=== PATIENT | male | born 2000 | race Caucasian/White ===

== ENCOUNTER → 2020-03-21 09:41 | Outpatient (CLI) | payer SELFPAY ==
[2020-03-11 16:26] VITALS: BMI 19.7
--- NOTE | 2020-03-21 09:44 | CT_ITS ---
STUDY: CT FACIAL BONES WITH T WITHOUT CONTRAST REASON FOR EXAM: Male, 19 years old. Soft tissue mass right lateral eyebrow x years, recently increasing in size, denies pain. RADIATION DOSAGE (If Supplied By Facility): CTDIvol = ( 29.38 ) mGy, DLP = ( 1138.99 ) mGycm TECHNIQUE: The patient was scanned in a multi detector CT scanner. Transaxial imaging was performed prior to and following the administration of IV 100mL Isovue-300. Sagittal and coronal images were reconstructed. Individualized dose optimization techniques were used for this CT. COMPARISON: None. FINDINGS: Oval-shaped fat density mass of the right supraorbital scalp measures 1.4 x 2.3 cm. There is mild bony remodeling of the underlying calvarium (image 34 series 605). No abnormal contrast enhancement. Normal orbital mercedes and orbital contents. Normal nasal bones and anterior nasal spine. Normal facial bones. There is no demonstrated fracture. Normal visualized paranasal sinuses. CT/Sinus/Facial Bone W/WO Contras IMPRESSION: 1. 1.4 x 2.3 cm fat density mass of the right supraorbital soft tissues, compatible with lipoma. Electronically Signed: Michael Beckett MD (Brooks) at 21:26 EST , Service support ,
== END ==
PROVIDERS: PCP Family Medicine; Referring Provider Surgery; Visit Provider Surgery
DX: R22.0 Localized swelling, mass and lump, head (principal)
CPT/HCPCS: 70488; Q9967

== ENCOUNTER 2020-04-14 10:27 | Day surgery (SDC) | payer SELFPAY ==
[2020-03-11 16:26] VITALS: BMI 19.7
--- NOTE | 2020-04-13 17:17 | PCM.HP.BLA ---
History and Physical Date of Admission: 04/14/20 HISTORY OF PRESENT ILLNESS Patient is a 19 year old male who presents for evaluation of an enlarging soft tissue mass on his right lateral forehead, eyebrow, and upper eyelid. He has had this mass for several years and he states that it gets bigger and smaller. Denies fever. Denies trauma Denies any visual problems. CT Face was done on 03/21/20. It showed 1.4 x 2.3 cm fat density mass of the right supraorbital soft tissues, compatible with lipoma. He presents today for further evaluation and treatment. PAST MEDICAL HISTORY Head mass PAST SURGICAL HISTORY No history of previous surgery ALLERGIES No Known Allergies MEDICATIONS NK FAMILY HISTORY Other - No pertinent family history SOCIAL HISTORY Smoking Status: Never smoker alcohol intake: never substance use type: does not use REVIEW OF SYSTEMS General - Denies fever, fatigue, and weight loss. Eyes - Denies cataracts and glaucoma. ENT - Denies nasal congestion and sore throat. Has enlarging soft tissue mass right lateral forehead, eyebrow, and upper eyelid. Endocrine - Denies excessive thirst and urination. Skin - Denies skin cancer. Denies family history of skin cancer. Musculoskeletal - Denies joint pain, joint stiffness, weakness of muscles and joints, back pain, and arthritis. Neuro - Denies headaches. Cardiovascular - Denies chest pain, fatigue, and shortness of breath with exertion. Psych - Denies anxiety and depression. Respiratory - Denies chronic cough and shortness of breath. Gastrointestinal - Denies nausea, vomiting, diarrhea, and constipation. Hematologic - Denies abnormal bruising and bleeding. Genitourinary - Denies hematuria and urinary frequency. PHYSICAL EXAMINATION General - Alert and oriented. HEENT - PERRL. EOMI. Throat is clear. He is able to elevate his eyebrows symmetrically. On the right lateral forehead, eyebrow, and upper eyelid is a soft tissue mass that measures 3.5 cm. No ulceration. Mass is mobile. Mass is nontender. No other suspicious lesions noted. Neck - Supple and non-tender. No cervical adenopathy. No suspicious lesions noted. Lungs- Clear to auscultation. Heart - Regular rate and rhythm. Abdomen - Soft and non distended. Extremities - FROM. No axillary adenopathy. Radial pulses are palpable. No suspicious lesions noted. Neuro - CN II-XII grossly intact. Psych - Normal mood and affect. ASSESSMENT 3.5 cm soft tissue mass right lateral forehead, eyebrow, and upper eyelid. PLAN Recommend excision of this enlarging soft tissue mass right lateral forehead, eyebrow, and upper eyelid. Will send the mass to Pathology for analysis to rule out carcinoma. Prior to surgery, a CT was done on 03/21/20. It showed 1.4 x 2.3 cm fat density mass of the right supraorbital soft tissues, compatible with lipoma. Surgery will be done under general anesthesia on an outpatient basis. With the possibility of a submuscular location for this soft tissue mass, some of the temporal branches of the facial nerve may develop scarring from localized swelling that can lead to weakness in eyebrow elevation. If it develops, and ptosis issues occur in the future, then can proceed with revision reconstruction with a direct brow lift. Patient voices understanding. Patient was informed of the risks and complications of the procedure including alternatives to surgery. These were discussed with the patient personally. Patient voices understanding and wishes to proceed. Some of the risks and complications were included in a form from the [place] [employer]. We discussed the current risks associated with COVID-19. While it is understood that there is a community spread of COVID-19, the risk of blair COVID-19 while at [facility] ([facility]) is very low; however, the risk cannot be completely mitigated because of the community spread of the disease. We discussed in detail the risk of exposure to and/or potential harm posed by the COVID-19 virus with having a surgery/procedure at this time versus the risk of delaying the surgery/procedure. It is not possible to know either the risk of delaying the surgery or procedure or chance of getting an infection with perfect accuracy, but a joint decision was made to proceed at this time with the scheduled surgery/procedure as indicated on the consent form. Patient was notified that we will need to comply with any screening or testing [facility] wishes to perform or that surgery may be delayed for any positive results. Discussed with the patient that I was tested for COVID-19 on 09/26/19 which was negative and on 10/10/19 which was negative and on 10/24/19 which was negative and on 11/07/19 which was negative and on 11/21/19 which was negative and on 12/12/19 which was negative and on 01/02/20 which was negative and on 02/06/20 which was negative and on 02/27/20 which was negative and on 03/17/20 which was negative. My testing regimen at this time is to be COVID-19 tested every 2 weeks or so. I received the COVID-19 vaccine (Moderna) on 03/25/20. Procedure Criteria Procedure Type: Elective COVID Risk Discussion: The surgeon/proceduralist and patient have discussed in detail the risk of exposure to and/or potential harm posed by the COVID-19 virus with having a surgery/procedure at this time versus the risk of delaying the surgery/procedure. It is not possible to know either the risk of delaying the surgery or procedure or chance of getting an infection with perfect accuracy, but a joint decision was made between the patient and the surgeon/proceduralist to proceed at this time with the scheduled surgery/procedure as indicated on the consent form.
[2020-04-14 10:54] VITALS: BP 131/77; PULSE 87; RESP 18; TEMP 36.9; O2SAT 100; BMI 19.9
[2020-04-14] MEDS: Lactated Ringers 1,000 ML 100 ML IV (11:05)
--- NOTE | 2020-04-14 12:05 | MASS_PTH ---
PATIENT: JOE FREEMAN LOC: [facility] [place][id number] AGE/SX: 19/M ROOM: RE04/14/[address]: Dr. Crow Russ MD : 2000 BED: DIS: 04/14/2020 SPEC #: [id number] RECD: 04/14/20 14:08 STATUS: ANABEL REJI #: [id number] JOHN: 04/14/20 12:[address]: Crow Russ DEPT: SURGICAL PATHOLOGY RECD BY: Moriah Barroso ENTERED: 04/15/20 11:20 SP TYPE: Mass OTHR DR: Dr. Fox Falcon, DO Tissues: Skin of forehead Procedures: Surgery Specimen Level IV HEADER OPERATION: Excision soft tissue mass lateral forehead behind eyebrow PRE-OP DIAGNOSIS: 3.5 cm soft tissue mass right lateral forehead, eyebrow and upper eyelid TISSUE SUBMITTED: 3.5 cm soft tissue mass right lateral forehead, eyebrow and upper eyelid MICROSCOPIC DIAGNOSIS Soft tissue mass right lateral forehead, biopsy: Fragments of fibroadipose and fibroconnective tissue with focal fat necrosis, chronic inflammation and foreign body giant cells reaction. Negative for malignancy. RAFIQ:lisette 04/16/2020 MICROSCOPIC DESCRIPTION Slides are reviewed. GROSS DESCRIPTION Received in fixative is one container labeled with the patient's name and designated soft tissue mass right lateral forehead. The specimen consists of three irregular fragments of dark borja soft tissue that in aggregate measure 2 x 2 x 0.2 cm. The specimen is totally submitted in one cassette. / AM:lisette 04/15/20 TC:3 CPT: 22150
[2020-04-14] MEDS: Lidocaine 1%/Epi 1:200 (30ml) 30 ML AMPUL (12:54)
[2020-04-14] MEDS: Mupirocin Ointment 22gm Tube 1 APPLIC (12:54)
--- NOTE | 2020-04-14 13:49 | PCM.OPRPT ---
Report of Operation Date of Procedure: 04/14/20 Pre-Operative Diagnosis: 3.5 cm soft tissue mass right lateral forehead, eyebrow, and upper eyelid. Post-Operative Diagnosis: 3.5 cm submuscular soft tissue mass right lateral forehead, eyebrow, and upper eyelid. Surgery/Procedure Performed:: Excision 3.5 cm soft tissue mass right lateral forehead, eyebrow, and upper eyelid with 3.5 cm complex closure repair. Description of Surgical Findings:: Patient is a 19 year old male who presents for evaluation of an enlarging soft tissue mass on his right lateral forehead, eyebrow, and upper eyelid. He has had this mass for several years and he states that it gets bigger and smaller. Denies fever. Denies trauma Denies any visual problems. CT Face was done on 03/21/20. It showed 1.4 x 2.3 cm fat density mass of the right supraorbital soft tissues, compatible with lipoma. Patient was informed of the risks and complications of the procedure including alternatives to surgery. These were discussed with the patient personally. Patient voices understanding and wishes to proceed. Some of the risks and complications were included in a form from the [place] [employer]. pcb design engineer: None Type of Anesthesia:: General Specimen's removed: Submuscular soft tissue mass right lateral forehead, eyebrow, and upper eyelid to Pathology. Drains: None. Estimated Blood Loss (mL): 20 ml. Description of Procedure: Patient was taken to OR in supine position and was placed under general anesthesia. The face was prepped and draped in the usual fashion. SCD's were placed for DVT prophylaxis. Perioperative antibiotics were given intravenously. For the procedure, I wore an N95 mask and wore proper eyewear protection. Using xylocaine with epinephrine, the soft tissue mass right lateral forehead, eyebrow, and upper eyelid was infiltrated. After waiting 5 minutes for the anesthetic to take effect, I made a horizontal incision at the level of the upper aspect of the eyebrow down through the subcutaneous tissue until the muscle was seen. There was a bulge underneath the muscle. The muscle was and the large complex mass was seen. There was fluid within the mass consistent with a cystic component such as a dermoid cyst. Sharp dissection was continued around the mass down to the bone. It was dissected off the bone including underlying scar tissue. There was a small indentation in the bone from the pressure of the mass over time. The underlying bone was intact with no communication noted beneath the bone. The soft tissue mass was sent to Pathology for analysis to rule out carcinoma. Some fluid was noted within the cyst. Some whitish flecks were present consistent with calcifications. It could possibly be a dermoid cyst. The wound was irrigated with saline. Hemostasis was obtained with electrocautery. At the medial aspect of the dissection, the supraorbital nerve was seen and preserved. The wound was closed in a complex layered fashion with 4-0 Monocryl figure of eight interrupted sutures for the underlying muscle. The deep dermis and subcutaneous tissue was approximated with 5-0 Monocryl interrupted sutures. The skin was approximated with 6-0 Prolene simple interrupted sutures. Antibiotic ointment was applied to the suture line followed by a gauze compression dressing. The length of the complex closure repair was 3.5 cm. Patient tolerated the procedure well and was sent to PACU in satisfactory condition. Patient will be sent home on antibiotics and pain medication. He will keep his head elevated during the initial postoperative period. Patient will followup in a week for a wound check and for discussion of the pathology report and for removal of the sutures. Grafts/Implants Used: None. - Complications None. - Admit VTE Documentation VTE Present on Admission: No VTE Mechan Device Prophylaxis: SCD's VTE Pharm Prophylaxis ordered?: No Surgery Charges CPT - 28403 ICD-10 - R22.0 53308 R22.0
[2020-04-14 13:55] VITALS: BP 109/64; BP 131/77; PULSE 81; RESP 18; TEMP 36.7; O2SAT 95
--- NOTE | 2020-04-14 13:56 | DCINST_ITS ---
You will use the following diet at home:: No restrictions Discharge Activity: May Shower - in two days., - - keep head elevated. no heavy lifting. May shower in (days): 2 Ice area for (Minutes): 5 - as needed for facial swelling. Weight Bearing Status: Weight bearing as tolerated Lifting Restrictions: 20 lbs. Keep extremity elevated above heart level: - - elevate Call your doctor if your incision/area has: Continuous Slow Oozing, Sudden Increased Bleeding, Increased Pain/ Swelling, Increased Redness, Foul Smelling Discharge, Swelling at the incision site Call your doctor if you observe: Fever of 101 or Higher, Coldness, Increased Pain, Shortness of breath, Chest pain, Calf discomfort, Uncontrolled pain Suture Line Care: - - apply antibiotic ointment to suture line daily after the operative dressing is removed. Remove Dressing in (days):: 2 - apply antibiotic ointment daily to suture line. Cleanse incision/area with: - - may get incision wet in the shower in two days. Allergies/Adverse Reactions: Allergies No Known Allergies Allergy (Unverified 04/08/20 08:58) Medications to take at Discharge Clindamycin HCl [Cleocin] 300 mg PO TID #12 cap 04/14/20 Oxycodone HCl/Acetaminophen [Percocet 5/325] 1 tablet PO Q6H PRN PRN 5 Days #20 tablet 04/14/20 The following prescriptions were given: Clindamycin HCl [Cleocin] 300 mg PO TID #12 cap Transmission Status: Pending to [facility] Oxycodone HCl/Acetaminophen [Percocet 5/325] 1 tablet PO Q6H PRN PRN 5 Days #20 tablet PRN Reason: Pain Score 6-10 Transmission Status: Sent to [facility] Primary Care Physician: Fox Falcon DO [Primary Care Provider] - Test Results: Test results from this visit will be discussed in further detail at your follow- up appointment, if applicable. Please Follow Up With: Crow Russ MD When: one week. call [phone] for appt. Proposed Discharge Date: 04/14/20
[2020-04-14 14:00] VITALS: BP 111/64; BP 131/77; PULSE 88; RESP 16; O2SAT 98
[2020-04-14 14:16] VITALS: BP 116/67; BP 131/77; PULSE 87; RESP 18; TEMP 36.6; O2SAT 97
[2020-04-14 14:56] VITALS: BP 131/77; BP 133/66; PULSE 87; RESP 16; TEMP 36.5; O2SAT 100
== END 2020-04-14 14:58 | disposition home or self-care (01) ==
LOC: SDC 10:31 → AC 10:33
PROVIDERS: PCP Family Medicine; Referring Provider Surgery; Visit Provider Surgery
PROC: (CPT 13132; principal; 2020-04-14 11:50)
DX: R22.0 Localized swelling, mass and lump, head (principal); Z20.822 Contact with and (suspected) exposure to COVID-19
CPT/HCPCS: 00300; 13132; 21012; 87426; 88305; C9803; J7120; J2405